=== PATIENT | male | born 1975 | race Caucasian/White ===

== ENCOUNTER → 2018-11-10 09:01 | Outpatient (CLI) | payer BC, SELFPAY ==
[2018-11-10 09:45] LABS: Basophils % 0.5 % (0.1-2.0); Eosinophils # 0.1 K/mm3 (0.0-0.4); Eosinophils % 1.7 % (0.1-12.0); Hematocrit 41.2 % (42.0-52.0); Hemoglobin 13.3 g/dL (14.1-18.0); Lymphocytes # 0.9 K/mm3 (0.7-4.5); Lymphocytes % 21.2 % (10-50); Mean Corpuscular HGB Conc 32.1 g/dL (31.8-35.4); Mean Corpuscular Hemoglobin 31.5 pg (27.0-31.2); Mean Corpuscular Volume 97.9 fl (80-94); Mean Platelet Volume 7.4 fl (7.4-10.4); Monocytes # 0.4 K/mm3 (0.1-1.0); Monocytes % 8.9 % (1.7-9.3); Neutrophils # 2.9 K/mm3 (1.8-7.8); Neutrophils % 67.8 % (37.0-80.0); Platelet Count 185 K/mm3 (142-424); Red Blood Count 4.21 M/mm3 (4.60-6.20); Red Cell Distribution Width 13.3 % (11.5-17.5); White Blood Count 4.2 K/mm3 (4.8-10.8)
[2018-11-10 10:52] LABS: Erythrocyte Sedimentation Rate 0 mm/hr (0-15)
[2018-11-10 12:45] LABS: Alanine Aminotransferase 29 U/L (12-78); Albumin Level 4.4 gm/dL (3.4-5.0); Albumin/Globulin Ratio 1.7 (1.1-1.8); Alkaline Phosphatase 40 U/L (46-116); Anion Gap 12.7 mEq/L (5-15); Aspartate Amino Transferase 20 U/L (15-37); Bilirubin,Total 0.8 mg/dL (0.2-1.0); Blood Urea Nitrogen 14 mg/dL (7-18); Calcium 9.2 mg/dL (8.5-10.1); Carbon Dioxide 28 mmol/L (21.0-32.0); Chloride 100 mmol/L (98-107); Chol/HDL Ratio 2.7 (1-3.5); Cholesterol 148 mg/dL (140-200); Creatinine,Serum 1.03 mg/dL (0.70-1.30); Estimated Glomerular Filt Rate 80 ml/min (>60); GFR (African American) 96 ML/MIN (>60); Globulin 2.6 gm/dl (1.3-3.2); Glucose 87 mg/dL (74-106); HDL Cholesterol 55 mg/dL (27-67); LDL Cholesterol 87 mg/dL (0-130); Potassium 4.7 mmoL/L (3.5-5.1); Sodium 136 mmol/L (136-145); Triglycerides 29 mg/dL (30-200); VLDL Cholesterol 6 mg/dL (0-40)
[2018-11-10 16:56] LABS: Ferritin 37 ng/mL (8-388)
[2018-11-11 21:54] LABS: Vitamin B12 1183 pg/mL (232-1245); Vitamin D 25 Hydroxy 55.9 ng/mL (30.0-100.0)
== END ==
PROVIDERS: Visit Provider Internal Medicine Adolescent Medicine
DX: M12.9 Arthropathy, unspecified (principal); R63.4 Abnormal weight loss; D64.9 Anemia, unspecified
CPT/HCPCS: 36415; 80053; 80061; 82607; 82652; 82728; 85025; 85651

== ENCOUNTER → 2019-08-14 10:00 | Outpatient (CLI) | payer BC, SELFPAY ==
[2019-08-14 10:35] LABS: Basophils % 0.8 % (0.1-2.0); Eosinophils # 0.1 K/mm3 (0.0-0.4); Eosinophils % 2.4 % (0.1-12.0); Hematocrit 46.7 % (42.0-52.0); Hemoglobin 14.5 g/dL (14.1-18.0); Lymphocytes % 26.8 % (10-50); Mean Corpuscular HGB Conc 31.1 g/dL (31.8-35.4); Mean Corpuscular Hemoglobin 31.8 pg (27.0-31.2); Mean Corpuscular Volume 102.1 fl (80-94); Mean Platelet Volume 7.3 fl (7.4-10.4); Monocytes # 0.3 K/mm3 (0.1-1.0); Monocytes % 7.1 % (1.7-9.3); Neutrophils # 2.5 K/mm3 (1.8-7.8); Neutrophils % 62.9 % (37.0-80.0); Platelet Count 203 K/mm3 (142-424); Red Blood Count 4.57 M/mm3 (4.60-6.20); Red Cell Distribution Width 13.8 % (11.5-17.5); White Blood Count 3.9 K/mm3 (4.8-10.8)
[2019-08-14 11:35] LABS: Anion Gap 11.6 mEq/L (5-15); Blood Urea Nitrogen 12 mg/dL (7-18); Calcium 9.3 mg/dL (8.5-10.1); Carbon Dioxide 30 mmol/L (21.0-32.0); Chloride 105 mmol/L (98-107); Creatinine,Serum 1.06 mg/dL (0.70-1.30); Estimated Glomerular Filt Rate 77 ml/min (>60); GFR (African American) 93 ML/MIN (>60); Glucose 87 mg/dL (74-106); Potassium 4.6 mmoL/L (3.5-5.1); Sodium 142 mmol/L (136-145)
[2019-08-15 11:44] LABS: Folate >20.0 ng/mL (>3.0)
== END ==
PROVIDERS: Visit Provider Nurse Practitioner Family
DX: D53.9 Nutritional anemia, unspecified (principal)
CPT/HCPCS: 36415; 80048; 82746; 85025

== ENCOUNTER → 2020-02-28 12:22 | Outpatient (CLI) | payer BC, SELFPAY ==
[2020-02-29 06:18] LABS: HIV Screen 4th Generation wRfx Non Reactive (Non Reactive)
[2020-02-29 12:17] LABS: Hep A Ab, IgM Negative (Negative); Hepatitis B Core Antibody IgM Negative (Negative); Hepatitis B Surface Antigen Negative (Negative)
[2020-02-29 14:34] LABS: HSV 2 IgG, Type Spec <0.91 index (0.00-0.90); Hepatitis C Antibody <0.1 s/co ratio (0.0-0.9); Rapid Plasma Reagin Ab Titer Non Reactive (NonRea<1:1)
[2020-03-01 11:17] LABS: Neisseria gonorrhoeae, NAA Negative (Negative)
== END ==
PROVIDERS: Visit Provider Nurse Practitioner Family
DX: Z13.9 Encounter for screening, unspecified (principal)
CPT/HCPCS: 36415; 80074; 86592; 86695; 86703; 86790; 87491; 87591; G0432

== ENCOUNTER 2020-09-25 13:21 | Outpatient (CLI) | payer BC, SELFPAY ==
[2020-09-25 13:28] VITALS: BMI 23.5
[2020-09-25 14:14] LABS: Basophils % 0.3 % (0.1-2.0); Eosinophils % 0.2 % (0.1-12.0); Hematocrit 43.2 % (42.0-52.0); Hemoglobin 14.9 g/dL (14.1-18.0); Lymphocytes # 0.8 K/mm3 (0.7-4.5); Lymphocytes % 6.7 % (10-50); Mean Corpuscular HGB Conc 34.5 g/dL (31.8-35.4); Mean Corpuscular Hemoglobin 32.8 pg (27.0-31.2); Mean Corpuscular Volume 95.2 fl (80-94); Mean Platelet Volume 7.3 fl (7.4-10.4); Monocytes # 0.7 K/mm3 (0.1-1.0); Monocytes % 5.4 % (1.7-9.3); Neutrophils # 10.6 K/mm3 (1.8-7.8); Neutrophils % 87.5 % (37.0-80.0); Platelet Count 124 K/mm3 (142-424); Red Blood Count 4.54 M/mm3 (4.60-6.20); Red Cell Distribution Width 13.7 % (11.5-17.5); White Blood Count 12.2 K/mm3 (4.8-10.8)
[2020-09-25 14:16] VITALS: BP 92/63; PULSE 69; RESP 20; TEMP 36.4; O2SAT 97
[2020-09-25 14:17] LABS: Chloride 97 mmol/L (98-107); Potassium 4.3 mmoL/L (3.5-5.1); Sodium 133 mmol/L (136-145)
[2020-09-25 14:18] LABS: MANUAL DIFFERENTIAL MANUAL DIFFERENTIAL (MANUAL DIFF)
[2020-09-25 14:20] LABS: Anion Gap 11.3 mEq/L (5-15); Blood Urea Nitrogen 16 mg/dl (9-20); Calcium 9.2 mg/dl (8.4-10.2); Carbon Dioxide 29 mmol/L (22.0-30.0); Creatinine Clearance Estimated 83 mL/min (50-200); Estimated Glomerular Filt Rate 73 ml/min (>60); GFR (African American) 88 ML/MIN (>60); Glucose 130 mg/dl (74-100)
[2020-09-25 14:30] LABS: Lymphocytes % 3 % (10-50); Monocytes % 3 % (2-9); Neutrophils % 88 % (42-76); Platelet Estimate Slight Decrease; RBC Morphology Normal; Total Cells Counted 100
[2020-09-25 15:02] VITALS: BP 101/58; BP 104/51; BP 107/63; PULSE 63; PULSE 66
[2020-09-25 15:15] VITALS: BP 107/63; PULSE 66; RESP 18; TEMP 36.7; O2SAT 100
--- NOTE | 2020-09-25 15:32 | PC.NURSE ---
Notified Casey Owens APRN of labs, vs and orthostatics. Instructed to have patient quarantine until he hears from An[facility] and push fluids. Pt verbalized understanding of instructions.
== END 2020-09-25 15:25 | disposition home or self-care (01) ==
PROVIDERS: PCP Nurse Practitioner Family; Visit Provider Nurse Practitioner Family
DX: Z03.818 Encounter for observation for suspected exposure to other biological agents ruled out (principal); E86.0 Dehydration; I95.1 Orthostatic hypotension
CPT/HCPCS: 80048; 85007; 85025; 96360; G0463; U0003

== ENCOUNTER → 2021-06-12 09:45 | Outpatient (CLI) | payer BC, SELFPAY ==
[2021-06-13 10:45] LABS: HIV Screen 4th Generation wRfx Non Reactive (Non Reactive)
[2021-06-13 12:33] LABS: Hep A Ab, IgM Negative (Negative); Hepatitis B Core Antibody IgM Negative (Negative); Hepatitis B Surface Antigen Negative (Negative); Hepatitis C Antibody <0.1 s/co ratio (0.0-0.9)
[2021-06-15 05:15] LABS: Neisseria gonorrhoeae, NAA Negative (Negative)
[2021-06-15 17:09] LABS: Treponema pallidum Ab (FTA-ABS Non Reactive (Non Reactive)
== END ==
PROVIDERS: Visit Provider Internal Medicine Adolescent Medicine
DX: Z20.2 Contact with and (suspected) exposure to infections with a predominantly sexual mode of transmission (principal)
CPT/HCPCS: 36415; 80074; 86703; 86780; 87491; 87591; G0432

== ENCOUNTER → 2022-02-10 10:40 | Outpatient (CLI) | payer BC, SELFPAY ==
[2022-02-10 11:00] LABS: Basophils # 0.1 K/mm3 (0-0.2); Basophils % 1.3 % (0.1-2.0); Eosinophils # 0.1 K/mm3 (0.0-0.4); Eosinophils % 1.9 % (0.1-12.0); Hematocrit 47.1 % (42.0-52.0); Hemoglobin 14.9 g/dL (14.1-18.0); Lymphocytes # 1.8 K/mm3 (0.7-4.5); Lymphocytes % 27.8 % (10-50); Mean Corpuscular HGB Conc 31.7 g/dL (31.8-35.4); Mean Corpuscular Hemoglobin 33.1 pg (27.0-31.2); Mean Corpuscular Volume 104.6 fl (80-94); Mean Platelet Volume 7.5 fl (7.4-10.4); Monocytes # 0.5 K/mm3 (0.1-1.0); Monocytes % 7.4 % (1.7-9.3); Neutrophils # 3.9 K/mm3 (1.8-7.8); Neutrophils % 61.7 % (37.0-80.0); Platelet Count 207 K/mm3 (142-424); Red Cell Distribution Width 13.4 % (11.5-17.5); White Blood Count 6.3 K/mm3 (4.8-10.8)
[2022-02-10 11:38] LABS: Alanine Aminotransferase 22 U/L (12-78); Albumin Level 4.4 g/dl (3.5-5.0); Albumin/Globulin Ratio 1.9 (1.1-1.8); Alkaline Phosphatase 97 U/L (38-126); Anion Gap 8.5 mEq/L (5-15); Aspartate Amino Transferase 27 U/L (17-59); Bilirubin,Total 0.4 mg/dl (0.2-1.3); Blood Urea Nitrogen 13 mg/dl (9-20); Carbon Dioxide 32 mmol/L (22.0-30.0); Chloride 102 mmol/L (98-107); Chol/HDL Ratio 2.7 (1-3.5); Cholesterol 152 mg/dl (140-200); Estimated Glomerular Filt Rate 105 ml/min (>60); GFR (African American) 127 ML/MIN (>60); Globulin 2.3 g/dL (1.3-3.2); Glucose 72 mg/dl (74-100); HDL Cholesterol 57 mg/dl (40-60); Potassium 4.5 mmoL/L (3.5-5.1); Sodium 138 mmol/L (136-145); Total Protein,Serum 6.7 g/dl (6.3-8.2); Triglycerides 270 mg/dl (30-150); VLDL Cholesterol 54 mg/dL (0-40)
[2022-02-10 11:49] LABS: Direct LDL Cholesterol 64.59 mg/dL (100-129)
[2022-02-10 14:10] LABS: Ferritin 66.1 ng/ml (17.9-464)
[2022-02-10 15:23] LABS: Vitamin B12 776 pg/mL (239-931)
== END ==
PROVIDERS: PCP Internal Medicine Adolescent Medicine; Visit Provider Internal Medicine Adolescent Medicine
DX: D53.9 Nutritional anemia, unspecified (principal); M12.9 Arthropathy, unspecified
CPT/HCPCS: 36415; 80053; 80061; 82607; 82728; 85025

== ENCOUNTER 2024-08-07 06:27 | Day surgery (SDC) | payer BC, SELFPAY ==
[2024-08-06 12:11] VITALS: BMI 28.1
[2024-08-07 06:48] VITALS: BP 142/94; PULSE 81; RESP 18; TEMP 36.2; O2SAT 98
[2024-08-07] MEDS: LACTATED RINGERS 1000ML 1,000 ML 25 ML IV (06:55)
--- NOTE | 2024-08-07 06:57 | P.PNANES_ITS ---
[facility] Disclaimer: The information contained in this section may have been updated after the patient was seen, as this information can be updated by other users. Surgical History No significant past surgical history Family History Other No significant family history Social History Smoking Status: Never smoker alcohol intake: current substance use type: denies use current occupational status: employed Travel in the last 8 weeks: None caffeine: Yes [facility] [place] Anesthesia Checklist Patient Identification Patient Identification: Arm Band and Verbal (Name & ) Structural Data Planned Operative Procedure/s: Colonoscopy Consent for Planned Operative Procedure(s) Verified: Yes Verified Documents: Surgical Consent and History and Physical NPO Status Verified Time NPO: 00:00 Additional verifications Anesthesia Reactions: No Airway Assessment Mallampati Score:: Class II C-Spine Mobility Assessed: Yes TMJ Mobility Assessed: Yes Dentition: Good Dentition Neurological Assessment Level of Consciousness: Awake Hx Seizures: No Numbness or tingling in extremities: No Anesthesia Plan Anesthesia Risk discussed: Yes Anesthesia Plan: Verified ASA Class: II Anesthesia Type: MAC
[2024-08-07 07:19] VITALS: O2SAT 100
--- NOTE | 2024-08-07 07:48 | P.PCN_ITS ---
Procedure: Date: 08/07/24 Patient Date of :: 1975 Procedure Performed:: Colonoscopy Indications:: Screening Performing Provider:: Jonas Mcnulty MD Referring Provider:: . Sedation:: Monitored anesthesia care Procedure:: After informed consent was obtained the patient was taken to the endoscopy suite. Sedation ensued after the patient was transferred to the left lateral decubitus position. Pulse, blood pressure, and oxygen saturation were monitored throughout the procedure. Digital rectal exam revealed no significant abnormality. The colonoscope was placed in position. The entire colon was eval uated. The colonoscope was carefully removed and the patient was transferred to recovery in stable condition. Please see findings and specimens below for detail. Findings:: Bowel preparation relatively poor Moderate tortuosity Moderate spasticity Mild sigmoid diverticulosis Specimens:: None Recommendations:: Repeat colonoscopy in 1-2 years with extended/alternate bowel preparation Complications:: No immediate with the exception of relatively poor bowel preparation Estimated blood obtained (mL): 0 Colonoscopy Component Colonoscopy Component Was a colonoscopy performed during today's procedure?: Yes Recommended follow up colonoscopy of at least 10 years?: No If no, follow up colonoscopy recommended in ___ years?: (See above) Reason for not recommending >/= 10 yr follow-up interval?: (See above)
[2024-08-07 07:50] VITALS: BP 114/60; PULSE 103; RESP 18; TEMP 36.4; O2SAT 97
[2024-08-07 08:00] VITALS: BP 110/73; PULSE 88; RESP 16; O2SAT 98
[2024-08-07 08:10] VITALS: BP 124/77; PULSE 82; RESP 16; O2SAT 96
[2024-08-07 08:20] VITALS: BP 123/69; PULSE 79; RESP 16; O2SAT 97
== END 2024-08-07 08:21 | disposition home or self-care (01) ==
PROVIDERS: PCP Internal Medicine Adolescent Medicine; Visit Provider Surgery
PROC: 0DJD8ZZ Inspection of Lower Intestinal Tract, Via Natural or Artificial Opening Endoscopic (ICD-10-PCS; CPT 45378; principal; 2024-08-07 07:30)
DX: Z12.11 Encounter for screening for malignant neoplasm of colon (principal); K57.30 Diverticulosis of large intestine without perforation or abscess without bleeding
CPT/HCPCS: 45378; J2704; J7120